=== PATIENT | female | born 1980 | race Hispanic/Latino ===

== ENCOUNTER 2020-02-12 16:39 | Observation (INO) | payer OTHER, SELFPAY ==
--- NOTE | ~2020-02-12 | US_ITS ---
EXAMINATION: US OB BPP wo non-stress DATE: 02/12/2020 17:36 INDICATION: Evaluate well-being. TECHNIQUE: Real-time pelvic ultrasound was performed. The interpreting radiologist was not present fo r the study. COMPARISON: None. FINDINGS: There is a single living fetus in vertex presentation. The placenta is fundal. cardiac activit y and movement are demonstrated. heart rate is 147 beats per minute (bpm). Biophysical profile performed by the technologist: breathing (30 sec sustained breathing in 30 minutes): 2 out of 2 movement (3 gross body movements in 30 minutes): 2 out of 2 tone (one episode of rpvctjb-tdnzcqslj-asjzuxn limb movement): 2 out of 2 Amniotic fluid pocket (2 cm): 2 out of 2 Total score: 8 out of 8 IMPRESSION: 1. Single living intrauterine in vertex presentation with heart rate of 147 bpm. 2. Normal placenta. 3. Biophysical profile 8 out of 8. Reviewed, dictated and finalized at location A.
[2020-02-12 17:01] VITALS: BP 140/71; PULSE 87
[2020-02-12 17:16] VITALS: BP 132/66; PULSE 92
--- NOTE | 2020-02-12 17:24 | PC.NURSE ---
1724-Pt being transported to US per wheelchair, her daughter is along side her to translate d/t pt not speaking U[place].
[2020-02-12 17:56] VITALS: BP 140/71; PULSE 94
--- NOTE | 2020-03-14 20:13 | PM.OBTRLD ---
OB - Triage/Final Diagnosis Final Diagnosis (1) Term delivered: Code(s): O80 - Encounter for full-term uncomplicated delivery Status: Acute
== END 2020-02-12 17:50 ==
LOC: ANHOBPP 16:48
PROVIDERS: Admitting Provider Obstetrics & Gynecology; Visit Provider Obstetrics & Gynecology
DX: O76 Abnormality in fetal heart rate and rhythm complicating labor and delivery (principal); O24.419 Gestational diabetes mellitus in pregnancy, unspecified control; Z3A.38 38 weeks gestation of pregnancy
CPT/HCPCS: 59025; 76819; G0378; G0379

== ENCOUNTER 2020-02-15 06:59 | Inpatient (IN) | payer OTHER, SELFPAY ==
[2020-02-15] VITALS (90 sets, daily range): BP systolic 100–157; BP diastolic 50–114; PULSE 85–119; RESP 18; TEMP 36.9–37.3; O2SAT 95–100; BMI 32.5
[2020-02-15 07:37] LABS: Glucose Point of Care 95 (65-105)
--- NOTE | 2020-02-15 07:43 | LDADM ---
This patient, Mattie Moreno, was admitted to Labor/Delivery/Recovery 105 on 02/15/20 at 06:59. Plans for labor, pain management and were discussed with patient. Patient/family oriented to hospital policies and general routines including ID bracelet, bed and alarms, visiting hours, pain management, procedures, bathroom and other care routines, personal items, smoking policy, room service/diet and guest tray routines, infant security routines, and visiting hours. Patient/Family are encouraged to report perceived risks to care and to ask questions if they do not understand what they are told or what they should do. See OBIX for further documentation.
[2020-02-15] MEDS: OXYTOCIN 30 UNITS/NS 500 ML 30 UNITS/500 ML BAG 125 UNITS IV CONT (09:06)
[2020-02-15] MEDS: LACTATED RINGERS 1,000 ML 125 ML IV CONT ×3 (09:07→11:20)
[2020-02-15 09:19] LABS: Basophils Percent Auto 0.3 % (0.2-1.2); Eosinophils Absolute Auto 0.1 K/mm3 (0-0.3); Eosinophils Percent Auto 0.8 % (0-4.4); Hematocrit 35.3 % (37.0-47.0); Hemoglobin 11.5 g/dL (12.0-15.0); Immature Granulocyte Absolute 0.07 K/mm3 (0.00-0.031); Immature Granulocyte Percent A 0.6 % (0-0.5); Lymphocytes Absolute Auto 1.89 K/mm3 (0.9-3.2); Lymphocytes Percent Auto 14.9 % (18.3-44.2); Mean Corpuscular HGB Conc 32.6 g/dl (32-36); Mean Corpuscular Volume 89.1 fl (80-100); Mean Platelet Volume 11.9 fl (7.4-10.4); Monocytes Absolute Auto 1.2 K/mm3 (0.1-0.6); Monocytes Percent Auto 9.2 % (2.6-8.5); Neutrophils Absolute Auto 9.4 K/mm3 (1.3-6.7); Neutrophils Percent Auto 74.2 % (45.5-73.1); Platelet Count Result 243 k/mm3 (150-375); Red Blood Count 3.96 M/mm3 (4.2-5.4); Red Cell Distribution Width 14.6 % (11.5-14.5); White Blood Count 12.7 K/mm3 (4.5-10.0)
--- NOTE | 2020-02-15 09:25 | WPDOBADMIT ---
Obstetrics - Admit Note Admission Note: record reviewed. No pertinent additions to the history and/or any subsequent changes in the physical findings that are not consistent with the expected course of the were found. Pt arrived in labor, SVE 6/100/-1, pt leaking but amniotic bag still present, AROM with moderate amount of clear, odorless fluid Additions to the history and/or subsequent changes in the physical findings follow. None.
--- NOTE | 2020-02-15 09:25 | WPDANESEPN ---
Anes - Epidural Procedure Note Date/Time: 02/15/20 9:25 Consent: I have discussed with the patient/family/POA, the placement of an epidural catheter and the use of epidural narcotic/local anesthetic for labor analgesia and/or postoperative pain management, including associated potential risks, benefits, complications and side effects. I have discussed alternative methods of labor analgesia and/or postoperative pain management. The patient/family/POA, understand(s) and wish(es) to proceed with epidural narcotic/local anesthetic for labor analgesia and/or postoperative pain management. Time-Out: A pre-procedural Time-Out was completed immediately before starting the procedure and confirmed: Patient Identification, Site, Procedure, Patient Position and the Availability of Requisite Equipment. Epidural Insertion Note Patient position: sitting Skin prep: chlorhexidine, sterile drape and duraprep Needle: 18g Tuohy-Schliff Catheter: 20g Unstyleted Technique: Loss of resistance. Level of insertion: L2/3 Catheter skin connie (cm): 13 Length in epidural space (cm): 6 Skin anesthesia: lidocaine 1% Test dose: 1.5% Lidocaine with 1:150241 Epi, negative for subarachnoid Inj and negative for intravascular Inj Observations: tolerated well Complications: none
[2020-02-15 12:15] LABS: Glucose Point of Care 104 (65-105)
--- NOTE | 2020-02-15 13:34 | PM.OBPRVD ---
OB - Delivery Note Procedure Delivery date: 02/15/20 Procedure: vaginal delivery events: Gestational Diabetes Induction method: none Delivery augmentation: rupture of membranes Delivery monitor: external FHT and external uterine Route of delivery: Laceration description: None Specimen: Yes Estimated blood loss (mL): 135 Anesthesia type: Epidural Disposition: other () Narrative: Dr. Middleton called to bs, FHR deceleration with pushing and fetus LOP, Able to rotate and vacuum placed 1 pull through 1 contraction, no pop offs, rotated shoulder and female infant delivered. Baby skin to skin on mothers chest and in stable condition Baby Date of : 02/15/20 Time of : 13:24 Weeks of gestation at delivery: 38 Infant gender: Female Weight (pounds): 8 Weight (ounces): 6 presentation: vertex position: Left Occiput Anterior cord vessel description: 3 Vessels and Clamped/Cut score one minute: 8 score five minutes: 9
[2020-02-15] MEDS: WITCH HAZEL 40 PADS 1 PAD TOPICAL (15:21)
[2020-02-15] MEDS: BENZOCAINE 20% AER SPR (*SP) 56 GM CAN 1 SPRAY TOPICAL (15:21)
[2020-02-15] MEDS: IBUPROFEN 600 MG TABLET PO (15:21)
--- NOTE | 2020-02-15 16:52 | PC.NURSE ---
1622-Patient transferred to post room #287 via wheelchair. Support person present. Oriented to unit, room, information board, rooming in, admission packet and security measures. Patient verbalizes understanding.
[2020-02-16 05:27] LABS: Hematocrit 29.3 % (37.0-47.0); Hemoglobin 9.3 g/dL (12.0-15.0)
--- NOTE | 2020-02-16 07:40 | PM.OBPNVD ---
OB - PN: Subj Subjective Date/time seen: 02/16/20 07:40 Patient comments: no complaints, pain well controlled and other (Lochia similar to menses) [place] baby status: doing well OB - PN: Obj Data Labs CBC & Chem 7: 02/16/20 05:11 Labs: Laboratory Results - last 24 hr 02/15/20 02/15/20 02/15/20 07:27 07:27 12:14 WBC 12.7 H RBC 3.96 L Hgb 11.5 L Hct 35.3 L MCV 89.1 MCH 29.0 MCHC 32.6 RDW 14.6 H Plt Count 243 MPV 11.9 H Immature Gran % (Auto) 0.6 H Neut % (Auto) 74.2 H Lymph % (Auto) 14.9 L [place] % (Auto) 9.2 H Eos % (Auto) 0.8 Baso % (Auto) 0.3 Lymph # (Auto) 1.89 [place] # (Auto) 1.2 H Eos # (Auto) 0.1 Baso # (Auto) 0.0 Abs Immat Gran (auto) 0.07 H Absolute Neuts (auto) 9.4 H Absolute Nucleated RBC 0.0 Nucleated RBC % 0.0 POC Capillary Glucose 104 Blood Type A Positive Antibody Screen Negative 02/16/20 05:11 WBC RBC Hgb 9.3 L Hct 29.3 L MCV MCH MCHC RDW Plt Count MPV Immature Gran % (Auto) Neut % (Auto) Lymph % (Auto) [place] % (Auto) Eos % (Auto) Baso % (Auto) Lymph # (Auto) [place] # (Auto) Eos # (Auto) Baso # (Auto) Abs Immat Gran (auto) Absolute Neuts (auto) Absolute Nucleated RBC Nucleated RBC % POC Capillary Glucose Blood Type Antibody Screen OB - PN A/P Plan day: 1 (s/p vaginal delivery, doing well) Plan: routine care and discharge home (follow up in 4 weeks) Time Spent With Patient Time: Total time spent is greater than 50% in coordination of care (as documented) at patient's floor/unit and/or counseling patient: Time with patient: less than 15 minutes Exam Const: General: no acute distress GI: Inspection: other (Fundus firm and nontender at umbilicus) GI Palp: Yes Soft to palpation and No Tenderness to palpation present (GI) Extrem: General: no edema
[2020-02-16 07:55] VITALS: BP 121/78; PULSE 78; RESP 16; TEMP 37.4; O2SAT 97
[2020-02-16] MEDS: POLYSACCHARIDE IRON COMPLEX 150 MG CAPSULE PO (08:04)
[2020-02-16] MEDS: IBUPROFEN 600 MG TABLET PO (08:05)
[2020-02-16] MEDS: MULTIVIT/MIN/PREN/FOL AC/IRON TABLET 1 TAB PO (08:05)
[2020-02-16] MEDS: DOCUSATE SODIUM 100 MG CAPSULE PO (08:05)
[2020-02-16 08:21] LABS: Rapid Plasma Reagin Non-Reactive (NonReactive)
--- NOTE | 2020-02-16 08:55 | WPDANLDPN2 ---
Anes-Prog Note L&D Date/Time: 02/16/20 08:55 Comfortable throughout: labor and delivery Neuraxial method: epidural Epidural/Spinal procedure site: clean & non-tender Neuro status: Neuro function grossly intact. Cardiovascular status: normal Respiratory status: normal Airway patency: baseline Mental status: baseline Post-Op hydration status: normal Vital Signs: Last Vital Signs Temp 99.3 F 02/16/20 07:55 Pulse 78 02/16/20 07:55 Resp 16 02/16/20 07:55 BP 121/78 02/16/20 07:55 Pulse Ox 97 02/16/20 07:55 I/O: Intake & Output 02/15/20 02/16/20 02/16/20 23:59 07:59 15:59 Output Total 725 Balance -725 Patient feedback: Patient satisfied with anesthetic care.
--- NOTE | 2020-02-16 09:39 | PC.NURSE ---
0805 FOB translates to pt the information pertaining to her assessment and her care. She V/U'd.
--- NOTE | 2020-02-16 12:30 | PC.NURSE ---
Consult with pt., using FOB as sports fitness and wellness director. Mother is breast and bottle feeding as she has with other 6 children. Mother states she is able to latch infant without difficulties or discomfort. She will continue to breast and bottle feed, she will mostly breast once her milk is in. Offered assist with latch, Mother denies the need for assist or observation of feeding. Mother is feeding as required and waking infant to feed if needed. is currently meeting outcomes for weight, output, jaundice and feeding frequencies. Mother states she feels confident to continue current feeding plan of breast and bottle at home. Reviewed transition to breast milk, signs of adequate intake, and engorgement/relief. Instructed to call ICP if intake/output less than required. Reviewed regular medications mother is taking. Information provided per [place]. Reviewed community resources on the [facility] website and in the Mom/Baby guide. Information on outpatient services provided. Mother has no further questions at this time.
--- NOTE | 2020-02-17 17:54 | P.DS_ITS ---
OB - DS: Summary OB Procedures : None OB Procedures Intrapartum: Vacuum extraction and Rotation OB Procedures: : None Time Spent with Patient Time attestation: Total time spent providing and/or coordinating discharge services: DS: Data Data Completed and Pending Completed studies during hospitalization: Pending at discharge 02/15/20 13:27 Surgical [PTH] Routine Discharge Plan Discharge Consulting providers: Susana Mancera Discharging Clinician: Pippa Solorzano Patient Disposition: Home, Self-Care Activity: pelvic rest Diet: regular Discharge Instructions: Education: Mom and Baby Guide Given to: Mother Follow-Up: Call your delivering provider's office for an appointment to be seen in: Call for appointment Mom and baby should come to the [facility] for the follow-up appointment. Appointment Date/Time: February 18, 2020 at 11:00 am What to expect at your follow-up visit: Physical Assessment Call [phone] if you are unable to keep your appointment time. BREAST CARE: * Wear a snug supportive bra. * For engorgement discomfort: Breast Feeding: * Apply warm moist washcloths * Express milk as needed to relieve engorgement * Wear loose clothing * For sore nipples: * Identify correct latch-on * Apply warm moist washcloths before and after nursing * Air dry nipples after nursing * May apply Lansinoh cream to nipples EPISIOTOMY/PERINEAL CARE: * Until bleeding stops, use your sondra bottle after urinating * Change your pad frequently throughout the day * No tub baths until seen by your physician - You may shower ACTIVITY: * Rest as much as possible. * Do not exercise or lift anything heavier than your baby (such as laundry or other children.) * Avoid stairs or driving as much as possible. * Do not put anything into the vagina. No douching, tampons, or sexual activity until seen by physician. NOTIFY PHYSICIAN IF YOU HAVE ANY QUESTIONS OR IF ANY OF THE FOLLOWING SYMPTOMS OCCUR: * If your perineum becomes red, swollen, or more painful than what you have experienced in the hospital. * If your vaginal bleeding becomes foul smelling. * If your vaginal bleeding becomes more heavy than a period or if your bleeding changes from pink to bright red. However, you may pass an occasional walnut- sized clot once or twice for the first week . * If you experience a sharp, shooting pain in you calves. * If you discover a hard, reddened area on your breast or if you experience flu- like symptoms. DIET: * Eat regular, well-balanced meals. * Drink plenty of fluids daily. If , drink to thirst. Stand Alone Forms: General Discharge Information Follow-up/Referrals: Pippa Solorzano MD [Physician] - Discharge Medications: New ibuprofen 600 mg Tablet 600 mg PO Q6H PRN (Reason: Cramping) Qty: 60 RF: 0 Continued PNV cmb#[id number]-ferrous fumarate-FA [] 28 mg iron- 800 mcg Tablet 1 tablet PO DAILY RF: 0 Date of admission: 02/15/20 06:59 Primary Care Provider: PHYSICIAN,DEVELOPMENTAL SERVICES WORKER Admitting Provider: Manuela Middleton Discharge Date/Time: 02/16/20 16:45 Attending physician on admission: Pippa Solorzano
[2020-02-18 12:16] VITALS: BP 136/73; PULSE 75; RESP 20; TEMP 37.1; O2SAT 100
== END 2020-02-16 16:45 | disposition home or self-care (01) | DRG 560 ==
LOC: ANHLDR 10:17 → ANHOB2 02-16 15:42 → ANHLDR 02-17 11:13 → ANHOB2 02-17 11:13
PROVIDERS: Advanced Practice Midwife; Admitting Provider Obstetrics & Gynecology; Visit Provider Obstetrics & Gynecology
DX: O24.429 Gestational diabetes mellitus in childbirth, unspecified control (principal); Z37.0 Single live birth; Z3A.38 38 weeks gestation of pregnancy; O66.0 Obstructed labor due to shoulder dystocia; O36.8330 Maternal care for abnormalities of the fetal heart rate or rhythm, third trimester, not applicable or unspecified
CPT/HCPCS: 36415; 85014; 85018; 85025; 86592; 86850; 86900; 86901; 88307; A9270; J2590; J2795; J3010; J7120

== ENCOUNTER 2020-02-20 14:44 | Outpatient (CLI) | payer OTHER, SELFPAY ==
--- NOTE | 2020-02-20 15:00 | PC.NURSE ---
Pt's telling me there oldest son was in an accident at work yesterday. Pt tearful. Will wait a few more minutes to check BP.
[2020-02-20 15:06] VITALS: BP 145/83; PULSE 85
[2020-02-20 15:15] VITALS: BP 137/77; PULSE 84
[2020-02-20 15:30] VITALS: BP 131/87; PULSE 81
[2020-02-20 15:45] VITALS: BP 142/73; PULSE 81
[2020-02-20 15:50] LABS: Basophils Percent Auto 0.2 % (0.2-1.2); Eosinophils Absolute Auto 0.1 K/mm3 (0-0.3); Eosinophils Percent Auto 0.7 % (0-4.4); Hematocrit 34.5 % (37.0-47.0); Hemoglobin 10.9 g/dL (12.0-15.0); Immature Granulocyte Absolute 0.09 K/mm3 (0.00-0.031); Immature Granulocyte Percent A 0.9 % (0-0.5); Lymphocytes Absolute Auto 1.75 K/mm3 (0.9-3.2); Mean Corpuscular HGB Conc 31.6 g/dl (32-36); Mean Corpuscular Hemoglobin 28.6 pg (26-34); Mean Corpuscular Volume 90.6 fl (80-100); Mean Platelet Volume 9.8 fl (7.4-10.4); Monocytes Absolute Auto 0.9 K/mm3 (0.1-0.6); Monocytes Percent Auto 8.9 % (2.6-8.5); Neutrophils Absolute Auto 7.4 K/mm3 (1.3-6.7); Neutrophils Percent Auto 72.3 % (45.5-73.1); Platelet Count Result 307 k/mm3 (150-375); Red Blood Count 3.81 M/mm3 (4.2-5.4); White Blood Count 10.3 K/mm3 (4.5-10.0)
[2020-02-20 16:00] VITALS: BP 145/75; PULSE 76
[2020-02-20 16:01] LABS: Alanine Aminotransferase 64 U/L (4-35); Albumin Level 3.4 g/dL (3.5-5.1); Alkaline Phosphatase 234 U/L (38-126); Anion Gap 5 mmol/L (8-16); Aspartate Amino Transferase 39 U/L (14-36); Bilirubin,Total 0.4 mg/dL (0.2-1.3); Blood Urea Nitrogen 11 mg/dL (7-17); Calcium 8.7 mg/dL (8.4-10.2); Carbon Dioxide 28 mmol/L (22-30); Chloride 105 mmol/L (98-107); Estimated Glomerular Filt Rate > 60; Glucose 103 mg/dL (65-105); Potassium 4.2 mmol/L (3.4-5.0); Sodium 138 mmol/L (137-145); Uric Acid 5.2 mg/dL (2.5-7.5)
[2020-02-20 16:15] VITALS: BP 147/72; PULSE 76
--- NOTE | 2020-02-20 16:19 | PC.NURSE ---
Dr. Middleton informed of BP's and lab results. Pt's asking if she needs to take her antibiotic any more. Dr. Middleton states pt was just seen in the office due to the mastitis before she was sent to us for the elevated BP's; he just called in the antibiotic and she is to pick it up and take all the medicine. Orders for discharge received.
== END 2020-02-20 16:41 | disposition home or self-care (01) ==
LOC: ANHOBOP 14:47 → ANHOBPP 14:48
PROVIDERS: Visit Provider Obstetrics & Gynecology
DX: O16.5 Unspecified maternal hypertension, complicating the puerperium (principal); Z3A.00 Weeks of gestation of pregnancy not specified
CPT/HCPCS: 36415; 80053; 84550; 85025; 99199